=== PATIENT | male | born 1995 | race Hispanic/Latino ===

== ENCOUNTER 2018-08-10 14:51 | Emergency (ER) | payer MEDICAID, OTHER ==
[2018-08-10] MEDS ORDERED: KETOROLAC TROMETHAMINE 30MG/ML ONE (15:12)
== END 2018-08-10 15:44 | disposition home or self-care (01) ==
LOC: EDH 14:51
DX: K02.9 Dental caries, unspecified (principal); Z88.0 Allergy status to penicillin
CPT/HCPCS: 96372; 99283; J1885

== ENCOUNTER 2018-11-04 18:41 | Emergency (ER) | payer OTHER ==
[2018-11-04 19:28] LABS: RAPID GROUP A STREP NEGATIVE (NEGATIVE)
[2018-11-04] MEDS ORDERED: LIDOCAINE HCL-MPF 1% 2ML VIAL ONE (19:38)
[2018-11-04] MEDS ORDERED: CEFTRIAXONE SODIUM 1 GM ONE (19:38)
== END 2018-11-04 20:14 | disposition home or self-care (01) ==
LOC: EDH 18:41
DX: H65.193 Other acute nonsuppurative otitis media, bilateral (principal); R50.81 Fever presenting with conditions classified elsewhere; Z88.0 Allergy status to penicillin
CPT/HCPCS: 87804 ×2; 87880; 96372; 99284; J0696; J3490

== ENCOUNTER 2019-02-11 16:22 | Emergency (ER) | payer SELFPAY ==
[2019-02-11 17:13] LABS: APPEARANCE,URINE Clear (CLEAR); BILIRUBIN,URINE Negative (NEGATIVE); COLOR,URINE Yellow (YELLOW); GLUCOSE, URINE (UA) >=1000 mg/dL (NEGATIVE); KETONES,URINE Trace mg/dL (NEGATIVE); LEUKOCYTE ESTERASE ,URINE Negative (NEGATIVE); NITRATE,URINE Negative (NEGATIVE); OCCULT BLOOD,URINE Negative (NEGATIVE); PROTEIN,URINE Negative (NEGATIVE); UROBILINOGEN,URINE 0.2 mg/dL (0.2-1.0)
[2019-02-11] MEDS ORDERED: IBUPROFEN 800 MG TAB ONE (17:24)
[2019-02-11 17:54] LABS: BACTERIA,URINE None Seen /HPF (None Seen); RBC,URINE 0-1 /HPF (0-1); SQUAMOUS EPITHELIAL CELL,UR 0-2 /HPF (0-2); WBC,URINE 0-1 /HPF (0-1)
[2019-02-11 17:55] LABS: MUCUS,URINE Rare LPF (None Seen)
== END 2019-02-11 17:41 | disposition home or self-care (01) ==
LOC: EDH 16:22
DX: N47.6 Balanoposthitis (principal); K08.89 Other specified disorders of teeth and supporting structures; Z72.0 Tobacco use; Z88.0 Allergy status to penicillin
CPT/HCPCS: 81001

== ENCOUNTER 2024-05-05 20:04 | Emergency (ER) | payer SELFPAY ==
[~2024-05-05] VITALS: Ht 162.6 cm; Wt 145.1 kg
[2024-05-05 20:17] VITALS: BP 132/78; PULSE 88; RESP 20; TEMP 98.7; O2SAT 100
[2024-05-05] MEDS ORDERED: CIPOTIC OTIC (20:29)
--- NOTE | 2024-05-05 20:30 | ERN ---
General Chief Complaint: Earache Stated Complaint: C/O PAIN TO LEFT EAR X 5 DAYS Time Seen by MD: 20:07 Time Seen by Midlevel: 20:07 Source: patient History of Present Illness Initial Comments Patient is a 28-year-old male with no significant past medical history presenting to the emergency department with left ear pain that has been ongoing for the five days. Denies any other symptoms Allergies: Coded Allergies: Penicillins (Unverified Allergy, Unknown, 11/04/18) Home Meds Active Scripts Ciprofloxacin HCl/Hc (Cipro Hc Otic Susp) 0.2 %-1 % Otsus, 3 DROP OTIC BID for 7 Days, #10 ML 0 Refills Prov:CARROLL LAKHANI 05/05/24 Past Medical History Past Medical History: No Pertinent History Past Surgical History: None ROS Dictation CONSTITUTIONAL: Negative except for HPI HEAD/FACE: Negative except for HPI EENT: Negative except for HPI RESPIRATORY: Negative except for HPI GASTROINTESTINAL/ABDOMINAL: Negative except for HPI GENITOURINARY: Negative except for HPI MUSCULOSKELETAL: Negative except for HPI INTEGUMENTARY: Negative except for HPI NEUROLOGICAL/PSYCH: Negative except for HPI HEMATOLOGIC/LYMPHATIC: Negative except for HPI All Systems Negative, Except as noted above. 13 point review of systems assessed and all negative except for above. Physical Exam Physical Exam Dictation PHYSICAL EXAM: GENERAL: alert,, awake oriented x 3 HEENT: EOMI, Sclera non icteric, moist mucosa, left otitis externa NECK: Supple, no JVD, trachea midline LUNGS: Clear breath sounds bilaterally. No wheezes HEART: Regular rate and rhythm. Normal S1 and S2, without murmurs ABD: Abdomen soft, nontender. Bowel sounds present EXT: No clubbing or cyanosis, NEURO: Alert and oriented to person, follows commands MDM MDM: Differential diagnosis: Otitis media, otitis externa, mastoiditis There are no social concerns with this patient. Prescription drug management Prescriptions will include: Cipro HC otic Medical management and examination interpretation discussions were had by me with other qualified healthcare professionals as indicated for the patient's care. ED Course Orders Procedure Category Date Status Time Ciprofloxacin Hcl/Hc PHA 05/05/24 Complete (Cipro Hc Otic Susp 20:30 Current Medications Medications (Trade) Dose Ordered Sig/Tuan Route PRN Reason Start Time Stop Time Status Last Admin Dose Admin Ciprofloxacin/ Hydrocortisone (Cipro Hc Otic Susp) 1 DROP ONCE ONCE OTIC 05/05/24 20:30 05/05/24 20:31 DC 05/05/24 20:32 Vital Signs Date Time Temp Pulse Resp B/P (MAP) Pulse Ox O2 Delivery O2 Flow Rate FiO2 05/05/24 20:17 98.8 88 20 132/78 100 Room Air* 0 21 05/05/24 20:07 98.2 95 20 125/84 98 Room Air DX & DISP Disposition: Discharge Departure Impression: Primary Impression: Left otitis externa Condition: Stable Scripts Ciprofloxacin HCl/Hc (Cipro Hc Otic Susp) 0.2 %-1 % Otsus 3 DROP OTIC BID for 7 Days, #10 ML 0 Refills Prov: CARROLL LAKHANI 05/05/24 Additional Instructions: Your physical examination is consistent with an otitis externa. You were given Cipro floxacillin eardrops in the ER. I have also given you a prescription for outpatient management. Follow up with your primary care doctor in 2-3 days for repeat evaluation. Return to the ER for any new or worsening symptoms Referrals: SELF,REFERRAL (PCP) Time of Disposition: 20:27 I have reviewed the case, and I agree with, Diagnosis and Plan I performed the substantive portion of the visit. I have reviewed and personally made and approve the management plan that is documented in the note by myself or the SHANNAN. I acknowledge for responsibility for the patient's management plan. CARROLL LAKHANI May 05, 2024 20:30
[2024-05-05] MEDS: CIPROFLOXACIN HCL 0.2%/HYDROCORT 1% 10 ML OTIC SUSP OTIC ONE (20:32)
== END 2024-05-05 20:34 | disposition home or self-care (01) ==
LOC: EDH 20:04
DX: H60.92 Unspecified otitis externa, left ear (principal); Z88.0 Allergy status to penicillin
CPT/HCPCS: 99283

== ENCOUNTER 2024-05-11 11:37 | Emergency (ER) | payer SELFPAY ==
[~2024-05-11] VITALS: Ht 162.6 cm; Wt 74.8 kg
[~2024-05-11 11:37] MED LIST: CIPOTIC OTIC
[2024-05-11 11:38] VITALS: BP 127/75; PULSE 100; RESP 14; TEMP 97.5
[2024-05-11 12:13] LABS: COVID19 (SARS ANTIGEN RAPID) PRESUMPTIVE NEGATIVE (NEGATIVE); INFLUENZA TYPE A Negative For Type A (NEGATIVE); INFLUENZA TYPE B Negative For Type B (NEGATIVE)
[2024-05-11] MEDS: acetaMINOPHEN 500 MG TABLET PO STA (12:19)
[2024-05-11] MEDS: ketOROlac 15MG/ML VIAL (15MG/ML) IM STA (12:20)
[2024-05-11 12:45] LABS: RAPID GROUP A STREP positive (NEGATIVE)
[2024-05-11] MEDS ORDERED: AZIT500T4 PO (13:30)
--- NOTE | 2024-05-11 13:31 | ERN ---
ED Note History of Present Illness Stated Complaint: SORE THROAT COUGH Chief Complaint: Flu Symptoms Time Seen by MD: 11:38 Time Seen by Midlevel: 11:42 Dictation: 28-year-old male complaining of congestion, sore throat for the last three days. Denies any shortness of breath, cough nausea, vomiting or diarrhea. Denies any medical or surgical history. Patient has not taken any OTC medication. Allergies: Coded Allergies: Penicillins (Unverified Allergy, Unknown, 11/04/18) Home Meds Active Scripts Ciprofloxacin HCl/Hc (Cipro Hc Otic Susp) 0.2 %-1 % Otsus, 3 DROP OTIC BID for 7 Days, #10 ML 0 Refills Prov:CARROLL LAKHANI 05/05/24 Past Medical History Past Medical History: No Pertinent History Surgical History: None Review of System Dictation Constitutional: Negative for fever,chills, and weight loss Eyes: Negative for injury, pain,redness, and discharge ENT: Complaining of throat pain for three days Cardiovascular: Negative for chest pain, palpitations, and edema Respiratory: Negative for shortness of breath, cough, and wheezing, Abdomen/GI: Negative for abdominal pain, nausea, vomiting, diarrhea, and constipation Back: Negative for injury and pain : Negative for injury, bleeding and discharge MS/Extremity: Negative for injury and deformity Skin: Negative for rash, and discoloration Neuro: Negative for headache, weakness, numbness, tingling, and seizure Psych: Negative for suicide ideation, homicidal ideation, and hallucinations Review of Systems: was completed Initial Vital Sign VS Vital Signs Date Time Temp Pulse Resp B/P (MAP) Pulse Ox O2 Delivery O2 Flow Rate FiO2 05/11/24 11:38 97.5 100 14 127/75 100 Room Air 0 Physical Exam Dictation General: awake, alert, NAD Head/Face: Normocephalic, atraumatic Eyes: PERRL, EOMI, vision at baseline ENT: oral cavity clear, TMs clear, oropharynx mild erythema, no exudate Neck: Trachea midline, supple, no nuchal rigidity Cardiovascular: RRR, normal S1/S2, No MRGs, no JVD Respiratory: CTAB, no respiratory distress, No rales or wheezes Abdomen: Soft, non-tender, non-distended, normal bowel sounds, no guarding or rebound. Skin: Warm, dry, normal turgor, no rash MS/Extremity: Pulses equal, no cyanosis, neurovascular intact, FROM Neuro: COAx4, GCS 15, strength 5/5, CN 2-12 intact, normal cerebellar exam, normal gait, Psych: Normal behavior, mood, and affect normal Results (Laboratory/Radiology) Laboratory/Radiology Laboratory Tests Test 05/11/24 11:45 Influenza Type A Antigen Negative For Type A Influenza Type B Antigen Negative For Type B SARS-CoV-2 Antigen (Rapid) PRESUMPTIVE NEGATIVE Group A Streptococcus Rapid positive (NEGATIVE) *A Labs Reviewed?: Yes ED Course ED Course Orders Procedure Category Date Status Time Influenza Type A & B, LAB 05/11/24 Complete Rapid 11:48 Covid19 (Sars Antigen LAB 05/11/24 Complete Rapid) 11:48 Rapid (Group A Strep) LAB 05/11/24 Complete 11:48 Acetaminophen 500mg PHA 05/11/24 Complete Tab (Tylenol 500mg T 12:08 Ketorolac PHA 05/11/24 Complete Tromethamine 15mg/Ml 12:08 Current Medications Medications (Trade) Dose Ordered Sig/Tuan Route PRN Reason Start Time Stop Time Status Last Admin Dose Admin Acetaminophen (TYLenol 500MG TAB) 1,000 mg ONCE STAT PO 05/11/24 12:08 05/11/24 12:09 DC 05/11/24 12:19 Ketorolac Tromethamine (toRADol) 15 mg ONCE STAT IM 05/11/24 12:08 05/11/24 12:09 DC 05/11/24 12:20 Vital Signs Date Time Temp Pulse Resp B/P (MAP) Pulse Ox O2 Delivery O2 Flow Rate FiO2 05/11/24 11:38 97.5 100 14 127/75 100 Room Air 0 Medical Decision Making MDM MDM: 28-year-old male complaining of congestion, sore throat for the last three days. Denies any shortness of breath, cough nausea, vomiting or diarrhea. Denies any medical or surgical history. Patient has not taken any OTC medication. Patient's serology tested positive for strep. We will discharge patient with azithromycin since patient has not allergic to penicillins. Discussed findings with patient. Educated patient to follow up with PCP in 1-2 days and to control his temperature with Tylenol or Motrin [id number]. Patient verbalized understanding, answered all questions. Differential diagnosis: Viral syndrome, influenza, COVID, strep throat, Rationale: Tests considered and ordered secondary to shared decision making include: Previous outside records reviewed: Old ER visits. Risk of complication and/or morbidity or mortality of patient management: None Medications-Per medication reconciliation Need for hospitalization: Patient does not meet criteria for hospitalization. Need for emergency major/minor surgery: No There are no social concerns with this patient. Prescription drug management Prescriptions will include symptomatic care Patient's prior external medical records from other ER visits were reviewed by me as indicated. Prior testing and results from previous visits were reviewed. Prior tests were taken into account with medical decision making and resource utilization, independent historian/historians were used to obtain complete medical history. I independently interpreted the test that were performed, results were reviewed by me and considered findings on radiology if ordered. Medical management and examination interpretation discussions were had by me with other qualified healthcare professionals as indicated for the patient's care. DX & DISP Disposition: Discharge Departure Impression: Primary Impression: Strep throat Condition: Stable Scripts Azithromycin (Azithromycin) 500 Mg Tablet 1 TAB PO DAILY for 5 Days, #5 TAB 0 Refills Prov: THANIA LINDSAY NP 05/11/24 Referrals: SELF,REFERRAL (PCP) Time of Disposition: 13:30 I have reviewed the case, and I agree with, Diagnosis and Plan THANIA LINDSAY NP May 11, 2024 13:31
== END 2024-05-11 13:38 | disposition home or self-care (01) ==
LOC: EDH 11:37
DX: J02.0 Streptococcal pharyngitis (principal); Z20.822 Contact with and (suspected) exposure to COVID-19; Z88.0 Allergy status to penicillin; Z79.899 Other long term (current) drug therapy
CPT/HCPCS: 99283; 87426; 87880; 87804 ×2; 96372; J1885

== ENCOUNTER 2024-06-07 16:33 | Emergency (ER) | payer SELFPAY ==
[~2024-06-07] VITALS: Ht 162.6 cm; Wt 81.6 kg
[~2024-06-07 16:33] MED LIST changes: +AZIT500T4 PO
[2024-06-07 16:51] VITALS: BP 128/76; PULSE 111; RESP 18; TEMP 99.3; O2SAT 98
--- NOTE | 2024-06-07 17:32 | ERN ---
ED Note History of Present Illness Stated Complaint: SORE THROAT Chief Complaint: Sore Throat Time Seen by MD: 17:04 Time Seen by Midlevel: 17:04 Dictation: Patient is a 28-year-old male with no past medical history who presents to the emergency department with complaints of sore throat, clear productive cough, chills onset last night. Denies any nausea vomiting or diarrhea. No other complaints reported. Allergies: Coded Allergies: Penicillins (Unverified Allergy, Unknown, 11/04/18) Home Meds Active Scripts Azithromycin (Azithromycin) 500 Mg Tablet, 1 TAB PO DAILY for 5 Days, #5 TAB 0 Refills Prov:THANIA LINDSAY NP 05/11/24 Ciprofloxacin HCl/Hc (Cipro Hc Otic Susp) 0.2 %-1 % Otsus, 3 DROP OTIC BID for 7 Days, #10 ML 0 Refills Prov:CARROLL LAKHANI 05/05/24 Past Medical History Past Medical History: No Pertinent History Surgical History: None RN Note Reviewed/Agreed w/PFSH: Yes Review of System Dictation Constitutional: Negative for fever,and weight loss positive for chills Eyes: Negative for injury, pain,redness, and discharge ENT: Negative for injury,pain or swelling positive for sore throat Cardiovascular: Negative for chest pain, palpitations, and edema Respiratory: Negative for shortness of breath, and wheezing, positive for cough Abdomen/GI: Negative for abdominal pain, nausea, vomiting, diarrhea, and constipation Back: Negative for injury and pain : Negative for injury, bleeding and discharge MS/Extremity: Negative for injury and deformity Skin: Negative for rash, and discoloration Neuro: Negative for headache, weakness, numbness, tingling, and seizure Psych: Negative for suicide ideation, homicidal ideation, and hallucinations Initial Vital Sign VS Vital Signs Date Time Temp Pulse Resp B/P (MAP) Pulse Ox O2 Delivery O2 Flow Rate FiO2 06/07/24 16:48 99.3 103 18 128/76 98 Room Air 0 06/07/24 16:51 21 Physical Exam Dictation Vital Signs reviewed General Appearance: Alert, oriented x 3, no acute distress, well developed, nourished. Head and Face: non-traumatic. Eyes: PERRL, pink conjunctivas, eyelid no trauma, anterior chamber with arcus senilis. Ears: Pinnas intact and no signs of trauma or erythema ear canals clear and no discharge TM no erythema Nose: No discharge, no bleeding. Oropharynx: Mouth normal, tongue pink. pharynx clear,+ erythema, tonsils no exudates, no abscesses noted, mucous membrane moist Neck: Supple, non-tender, no thyromegaly, no masses, no JVD, no bruits Breast:Deferred Chest:No tenderness, no crepitus, no paradoxical movement, no retractions Lungs:Clear, well-ventilated, symmetric, no rales, no wheezing, no rhonchi, no stridor, good breath sounds bilaterally Heart: Regular rate, regular rhythm, no murmur, no gallops Vascular: no peripheral edema, Abdomen: Soft, positive bowel sounds, nondistended, no guarding, nontender, no rebound, no masses no hepatomegaly, no splenomegaly, no Causey's sign, no hernias. Rectal: Deferred Genital: Deferred Neurological: Normal speech, motor function intact, sensory function intact Musculoskeletal: Neck nontender, full range of motion, back nontender, full range of motion, Extremities: nontender, full range of motion Skin: Color pink, dry, no turgor, no rash, no lacerations, no abrasions, no contusions. Lymphatic: Deferred Results (Laboratory/Radiology) Laboratory/Radiology Laboratory Tests Test 06/07/24 18:03 Influenza Type A Antigen Negative For Type A Influenza Type B Antigen Negative For Type B SARS-CoV-2 Antigen (Rapid) PRESUMPTIVE NEGATIVE Group A Streptococcus Rapid positive (NEGATIVE) *A Labs Reviewed?: Yes ED Course ED Course Orders Procedure Category Date Status Time Influenza Type A & B, LAB 06/07/24 Complete Rapid 17:31 Covid19 (Sars Antigen LAB 06/07/24 Complete Rapid) 17:31 Acetaminophen 500mg PHA 06/07/24 Complete Tab (Tylenol 500mg T 18:00 Rapid (Group A Strep) LAB 06/07/24 Complete 17:31 Current Medications Medications (Trade) Dose Ordered Sig/Tuan Route PRN Reason Start Time Stop Time Status Last Admin Dose Admin Acetaminophen (TYLenol 500MG TAB) 1,000 mg ONCE ONCE PO 06/07/24 18:00 06/07/24 18:01 DC 06/07/24 18:43 Vital Signs Date Time Temp Pulse Resp B/P (MAP) Pulse Ox O2 Delivery O2 Flow Rate FiO2 06/07/24 18:43 99.9 06/07/24 16:51 99.3 111 18 128/76 98 Room Air* 0 21 06/07/24 16:48 99.3 103 18 128/76 98 Room Air 0 Medical Decision Making MDM Patient is a 28-year-old male with no past medical history who presents to the emergency department with complaints of sore throat, clear productive cough, chills onset last night. Denies any nausea vomiting or diarrhea. No other complaints reported. Patient tested positive for strep. Will be treated with the antibiotics. Patient no acute distress. Nontoxic appearing. Differential diagnosis: Strep, upper respiratory infection, COVID-19 infection Need for hospitalization: Patient does not meet criteria for hospitalization. There are no social concerns with this patient. DX & DISP Disposition: Discharge Departure Impression: Primary Impression: Strep throat Condition: Stable Scripts Azithromycin (Azithromycin) 500 Mg Tablet 1 TAB PO DAILY for 3 Days, #3 TAB 0 Refills Prov: CORI PAREKH 06/07/24 Additional Instructions: FOLLOW-UP WITH PRIMARY CARE PROVIDER IN 1 TO 2 DAYS. TAKE MEDICATIONS DIRECTED HERE IN THE EMERGENCY ROOM. OKAY TO CONTINUE HOME MEDICATIONS UNLESS OTHERWISE DISCUSSED DURING YOUR VISIT IN THE EMERGENCY ROOM TODAY. RETURN TO YOUR NEAREST EMERGENCY ROOM IF SYMPTOMS WORSEN OR IF THERE IS NO IMPROVEMENT. CALL 911 IF YOU NEED IMMEDIATE ASSISTANCE. TAKE TYLENOL OR MOTRIN [id number] NEEDED AND IF NO CONTRAINDICATIONS ARE PRESENT. INCREASE ORAL HYDRATION. A WOUND CULTURE OR URINE CULTURE WAS ORDERED HERE IN THE EMERGENCY ROOM DEPARTMENT PLEASE FOLLOW-UP WITH PRIMARY CARE PROVIDER AND ADVISE THEM TO GET REPEAT PORTS FROM OUR FACILITY. IF YOU HAD ANY CEDRIC WRAP/SPLINTS THAT WERE APPLIED HERE, PLEASE DO NOT REMOVE THEM UNTIL YOU SEE YOUR PRIMARY CARE OR SPECIALTY. Referrals: SELF,REFERRAL (PCP) Time of Disposition: 18:51 I have reviewed the case, and I agree with, Diagnosis and Plan CORI PAREKH Jun 07, 2024 17:32
[2024-06-07 18:36] LABS: RAPID GROUP A STREP positive (NEGATIVE)
[2024-06-07 18:42] LABS: COVID19 (SARS ANTIGEN RAPID) PRESUMPTIVE NEGATIVE (NEGATIVE)
[2024-06-07 18:43] VITALS: TEMP 99.8
[2024-06-07 18:43] LABS: INFLUENZA TYPE A Negative For Type A (NEGATIVE); INFLUENZA TYPE B Negative For Type B (NEGATIVE)
[2024-06-07] MEDS: acetaMINOPHEN 500 MG TABLET PO ONE (18:43)
[2024-06-07] MEDS ORDERED: AZIT500T4 PO (18:53)
== END 2024-06-07 18:55 | disposition home or self-care (01) ==
LOC: EDH 16:33
DX: J02.0 Streptococcal pharyngitis (principal); Z88.0 Allergy status to penicillin; Z20.822 Contact with and (suspected) exposure to COVID-19
CPT/HCPCS: 87426; 87804; 87880; 99283

== ENCOUNTER 2024-07-15 23:00 | Emergency (ER) | payer SELFPAY ==
[~2024-07-15] VITALS: Ht 162.6 cm; Wt 70.3 kg
--- NOTE | 2024-07-15 23:09 | NUR ---
SEPSIS ALERT CALLED OVERHEAD TO FT4. PT WITH TEMP OF 100.0, PULSE OF 132
--- NOTE | 2024-07-15 23:29 | EKG ---
[facility] Test Date: 2024-07-15 Test Time: 23:27:28 Pat Name: JAHAIRA CUBA Department: ED Room: Gender: [employer]: [facility] : 1995 Requested By: LESVIA BOCANEGRA Order Number: [id number] Reading MD: Miguel Friend Measurements Intervals [place] Rate: 114 P: 56 OR: 160 QRS: 62 QRSD: 63 T: 45 QT: 271 QTc: 373 Interpretive Statements Sinus tachycardia Left atrial enlargement No previous ECG available for comparison Electronically Signed On 07-18-2024 17:34:13 [employer] by Miguel Friend Please click the below link to view image of tracing.
[2024-07-15 23:43] LABS: RAPID GROUP A STREP negative (NEGATIVE)
[2024-07-15 23:45] LABS: BASOPHILS # (AUTO) 0.05 K/uL (0.00-0.20); BASOPHILS % (AUTO) 0.4 % (0.0-5.0); EOSINOPHILS # (AUTO) 0.04 K/uL (0.00-0.70); EOSINOPHILS % (AUTO) 0.3 % (0.0-8.0); HEMATOCRIT 46.3 % (42-54); IMMATURE GRANULOCYTE ABSOLUTE 0.04 K/uL (0-1); LYMPHOCYTES # (AUTO) 0.5 K/uL (1.0-4.8); LYMPHOCYTES % (AUTO) 4.3 % (21.0-51.0); MEAN CORPUSCULAR HEMOGLOBIN 28.2 pg (27.0-33.0); MEAN CORPUSCULAR HGB CONC 34.3 g/dL (32.0-36.0); MEAN CORPUSCULAR VOLUME 82.2 fL (79-99); MONOCYTES # (AUTO) 0.5 K/uL (0.1-1.0); MONOCYTES % (AUTO) 3.9 % (3.0-13.0); NEUTROPHILS # (AUTO) 10.9 K/uL (1.8-7.7); NEUTROPHILS % (AUTO) 90.8 % (40.0-77.0); PLATELET COUNT (AUTO) 291 K/uL (130-400); RED BLOOD CELL COUNT(AUTO) 5.63 MIL/uL (4.50-6.20); RED CELL DISTRIBUTION WIDTH 11.6 % (11.0-15.5)
[2024-07-15 23:52] LABS: INFLUENZA TYPE B Negative For Type B (NEGATIVE)
[2024-07-15 23:53] LABS: SARS-CoV-2, RNA, NAAT POSITIVE SARS CoV-2 (NEGATIVE)
[2024-07-15 23:55] LABS: INFLUENZA TYPE A Positive For Type A (NEGATIVE)
[2024-07-15 23:59] LABS: POTASSIUM 3.4 mmol/L (3.5-5.1)
--- NOTE | 2024-07-16 00:04 | ERN ---
ED Note History of Present Illness Stated Complaint: C/O COUGH,CHILLS, SORE THROAT, FEVER X 2 DAYS Chief Complaint: Cough Time Seen by MD: 23:08 Dictation: This is a 28-year-old male who presented to the emergency room with complaints of cough fever with chills and a sore throat going on for the past 2 days. He felt really sick with severe generalized body aches and fatigue and hence came to the ER for further evaluation At presentation his temperature was a 100 pulse 118 respirations 19 blood pressure 119/74 with a pulse oximetry of 97% on room air Allergies: Coded Allergies: Penicillins (Unverified Allergy, Unknown, 11/04/18) Home Meds Active Scripts Azithromycin (Azithromycin) 500 Mg Tablet, 1 TAB PO DAILY for 3 Days, #3 TAB 0 Refills Prov:CORI PAREKH [employer]BLE CEILING INSTALLER 06/07/24 Azithromycin (Azithromycin) 500 Mg Tablet, 1 TAB PO DAILY for 5 Days, #5 TAB 0 Refills Prov:THANIA LINDSAY PRODUCT SUPPORT REPRESENTATIVE 05/11/24 Ciprofloxacin HCl/Hc (Cipro Hc Otic Susp) 0.2 %-1 % Otsus, 3 DROP OTIC BID for 7 Days, #10 ML 0 Refills Prov:CARROLL LAKHANI PA 05/05/24 Past Medical History Past Medical History: No Pertinent History Surgical History: None Family History: Negative RN Note Reviewed/Agreed w/PFSH: Yes Review of System Dictation Constitutional: Positive for fever,chills, and denies weight loss Eyes: Negative for injury, pain,redness, and discharge ENT: Negative for injury,pain or swelling Cardiovascular: Negative for chest pain, palpitations, and edema Respiratory: Positive for shortness of breath, cough, and denies wheezing, Abdomen/GI: Negative for abdominal pain, nausea, vomiting, diarrhea, and constipation Back: Negative for injury and pain : Negative for injury, bleeding and discharge MS/Extremity: Negative for injury and deformity Skin: Negative for rash, and discoloration Neuro: Negative for headache, weakness, numbness, tingling, and seizure Psych: Negative for suicide ideation, homicidal ideation, and hallucinations Initial Vital Sign VS Vital Signs Date Time Temp Pulse Resp B/P (MAP) Pulse Ox O2 Delivery O2 Flow Rate FiO2 07/15/24 23:03 100.0 132 20 154/84 98 07/15/24 23:28 Room Air* 0 21 Physical Exam Dictation General: awake, alert, NAD Head/Face: Normocephalic, atraumatic Eyes: PERRL, EOMI, vision at baseline ENT: oral cavity clear, TMs clear, no signs of infection Neck: Trachea midline, supple, no nuchal rigidity Cardiovascular: RRR, normal S1/S2, No MRGs, no JVD Respiratory: CTAB, no respiratory distress, No rales or wheezes Abdomen: Soft, non-tender, non-distended, normal bowel sounds, no guarding or rebound. Skin: Warm, dry, normal turgor, no rash MS/Extremity: Pulses equal, no cyanosis, neurovascular intact, FROM Neuro: COAx4, GCS 15, strength 5/5, CN 2-12 intact, normal cerebellar exam, normal gait, Psych: Normal behavior, mood, and affect normal Extremities-trace edema without any palpable cords, Homans sign is negative Results (Laboratory/Radiology) Laboratory/Radiology Laboratory Tests Test 07/15/24 23:24 White Blood Count 12.0 K/uL (4.8-10.8) H Red Blood Count 5.63 MIL/uL (4.50-6.20) Hemoglobin 15.9 g/dL (14.0-18.0) Hematocrit 46.3 % (42-54) Mean Corpuscular Volume 82.2 fL (79-99) Mean Corpuscular Hemoglobin 28.2 pg (27.0-33.0) Mean Corpuscular Hemoglobin Concent 34.3 g/dL (32.0-36.0) Red Cell Distribution Width 11.6 % (11.0-15.5) Platelet Count 291 K/uL (130-400) Mean Platelet Volume 10.6 fL (7.5-10.5) H Immature Granulocyte % (Auto) 0.3 % (0-1) Neutrophils (%) (Auto) 90.8 % (40.0-77.0) H Lymphocytes (%) (Auto) 4.3 % (21.0-51.0) L Monocytes (%) (Auto) 3.9 % (3.0-13.0) Eosinophils (%) (Auto) 0.3 % (0.0-8.0) Basophils (%) (Auto) 0.4 % (0.0-5.0) Neutrophils # (Auto) 10.9 K/uL (1.8-7.7) H Lymphocytes # (Auto) 0.5 K/uL (1.0-4.8) L Monocytes # (Auto) 0.5 K/uL (0.1-1.0) Eosinophils # (Auto) 0.04 K/uL (0.00-0.70) Basophils # (Auto) 0.05 K/uL (0.00-0.20) Absolute Immature Granulocyte (auto 0.04 K/uL (0-1) Nucleated Red Blood Cells 0.0 % (0.0-0.19) Sodium Level 132 mmol/L (136-145) L Potassium Level 3.4 mmol/L (3.5-5.1) L Chloride Level 92 mmol/L (101-111) L Carbon Dioxide Level 24 mmol/L (21-32) Blood Urea Nitrogen 9 mg/dL (7-18) Creatinine 1.0 mg/dL (0.5-1.3) Glomerular Filtration Rate Calc 106 mL/min (>90) Random Glucose 374 mg/dL (70-105) H Lactic Acid Level 1.6 mmol/L (0.8-2.5) Total Calcium 9.3 mg/dL (8.5-10.1) Total Creatine Kinase 82 U/L (21-232) Troponin I High Sensitivity < 4 ng/L (4-75) L Influenza Type A Antigen Positive For Type A Influenza Type B Antigen Negative For Type B SARS-CoV-2, RNA, NAAT POSITIVE SARS CoV-2 Group A Streptococcus Rapid negative (NEGATIVE) Labs Reviewed?: Yes ED Course ED Course Orders Procedure Category Date Status Time Covid Rna Naat LAB 07/15/24 Complete 23:08 Influenza Type A & B, LAB 07/15/24 Complete Rapid 23:08 Rapid (Group A Strep) LAB 07/15/24 Complete 23:08 Iv Insertion CPOE 07/15/24 Transmitted 23:09 Pulse Ox(Continuous) RT 07/15/24 Transmitted 23:09 Vital Signs Per CPOE 07/15/24 Transmitted Routine 23:09 12 Lead Ekg Tracing- EKG 07/15/24 Complete Technical 23:09 Cbc With Differential LAB 07/15/24 In Process 23:09 Blood Cult ELIE 07/15/24 In Process 23:09 Urinalysis Profile LAB 07/15/24 In Process 23:09 Culture Urine ELIE 07/15/24 In Process 23:09 Creatine Kinase, Total LAB 07/15/24 Complete 23:09 Troponin I High LAB 07/15/24 Complete Sensitivity 23:09 Lactic Acid LAB 07/15/24 Complete 23:09 Basic Metabolic Panel LAB 07/15/24 Complete 23:09 Ketorolac PHA 07/16/24 Complete Tromethamine 15mg/Ml 00:00 0.9%Nacl 1000ml (Ns PHA 07/16/24 Complete 1000ml) 00:30 Oseltamivir Phosphate PHA 07/16/24 Complete (Tamiflu) 00:30 Current Medications Medications (Trade) Dose Ordered Sig/Tuan Route PRN Reason Start Time Stop Time Status Last Admin Dose Admin Ketorolac Tromethamine (toRADol) 15 mg ONCE ONCE IM 07/16/24 00:00 07/16/24 00:01 DC 07/16/24 00:17 Oseltamivir Phosphate (Tamiflu) 75 mg ONCE ONCE PO 07/16/24 00:30 07/16/24 00:31 DC 07/16/24 00:17 Sodium Chloride 1,000 ml @ 0 mls/hr ONCE ONCE IV 07/16/24 00:30 07/16/24 00:31 DC 07/16/24 00:17 Vital Signs Date Time Temp Pulse Resp B/P (MAP) Pulse Ox O2 Delivery O2 Flow Rate FiO2 07/15/24 23:28 100.0 118 19 119/74 97 Room Air* 0 21 07/15/24 23:03 100.0 132 20 154/84 98 We will perform diagnostic labs, and administer medications according to the patient's complaint. Once the results are available, will review and personally interpreted the labs to rule out any acute life-threatening emergency the trach require immediate intervention and treatment. I will then re-evaluate the patient after treatment and diagnostic exams have return to determine whether the patient requires any further testing, can safely be discharged home or need further admission to hospital for additional treatment and evaluation. [place] [address] BNP 7 is normal. Twelve lead EKG showed a normal sinus rhythm with sinus tachy. Viral serology was positive for influenza a and COVID test was also positive. I discussed with the patient available information and possibilities that perhaps what he is experiencing is more related to the influenza and he does not have any underlying pulmonary disease and his pulse oximetry is 97-98% and hence I recommended that the 1st step would be to treat his influenza a and if symptoms worsen, to consider symptomatic treatment for COVID. He verbalized full understanding and is agreeable. Medical Decision Making MDM MDM: Differential diagnosis: Viral syndrome, influenza, strep pharyngitis, URI Rationale: Tests considered and ordered secondary to shared decision making include: Previous outside records reviewed: Old ER visits. Risk of complication and/or morbidity or mortality of patient management: None Medications-Per medication reconciliation Need for hospitalization: Patient does not meet criteria for hospitalization. Need for emergency major/minor surgery: No There are no social concerns with this patient. Prescription drug management Prescriptions will include symptomatic care Patient's prior external medical records from other ER visits were reviewed by me as indicated. Prior testing and results from previous visits were reviewed. Prior tests were taken into account with medical decision making and resource utilization, independent historian/historians were used to obtain complete medical history. I independently interpreted the test that were performed, results were reviewed by me and considered findings on radiology if ordered. Medical management and examination interpretation discussions were had by me with other qualified healthcare professionals as indicated for the patient's care. Problem List Problem List: (1) Acute viral syndrome (2) Strep throat (3) Influenza A (4) SARS-CoV-2 positive DX & DISP Disposition: Discharge Departure Impression: Primary Impression: Acute viral syndrome Additional Impressions: Strep throat, Influenza A, SARS-CoV-2 positive Condition: Stable Scripts Oseltamivir Phosphate (Tamiflu) 75 Mg Cap 75 MG PO BID for 5 Days, #10 CAP 0 Refills Prov: LESVIA BOCANEGRA MD 07/16/24 Ketorolac Tromethamine (Toradol) 10 Mg Tab 10 MG PO QID for pain for 5 Days, #20 TAB 0 Refills Prov: LESVIA BOCANEGRA MD 07/16/24 Additional Instructions: Patient and the caregiver have been informed of all the diagnostic tests and the imaging conducted during the today's visit to the emergency room and has verbalized understanding of the results I have personally reviewed and interpreted all diagnostic exams performed here in the ER today as well as the vital signs documented by the nursing staff. The patient is now being discharged to home and should follow up with the primary care physician or the specialist as directed by the ER staff. Follow-up with primary care provider in 1 to 2 days. Take medications as directed here in the emergency room. Okay to continue home medications unless o therwise discussed during your visit in the emergency room today. Return to your nearest emergency room if symptoms worsen or if there is no improvement. Call 911 if you need immediate assistance. Take Tylenol or Motrin [id number] as needed and if no contraindications are present. Increase oral hydration. A wound culture or urine culture was ordered here in the emergency room department please follow-up with primary care provider and advise them to get repeat ports from our facility. If you had any John wrap/splints that were applied here, please do not remove them until you see your primary care or specialty. Referrals: SELF,REFERRAL (PCP) LESVIA BOCANEGRA MD Jul 16, 2024 00:04
[2024-07-16] MEDS: ketOROlac 15MG/ML VIAL (15MG/ML) IM ONE (00:17)
[2024-07-16] MEDS: OSELTAMIVIR PHOSPHATE 75 MG CAP PO ONE (00:17)
[2024-07-16] MEDS: 0.9%NACL 1000ML 1,000 ML IV ONE (00:17)
[2024-07-16] MEDS ORDERED: OSEL75 PO (00:59)
[2024-07-16] MEDS ORDERED: KETO10 PO (00:59)
[2024-07-16 01:00] LABS: APPEARANCE,URINE CLEAR (CLEAR); BILIRUBIN,URINE NEGATIVE (NEGATIVE); COLOR,URINE LIGHT-YELLOW (YELLOW); GLUCOSE, URINE (UA) >=1000 mg/dL (NEGATIVE); KETONES,URINE 150 mg/dL (NEGATIVE); LEUKOCYTE ESTERASE ,URINE NEGATIVE Leu/uL (NEGATIVE); NITRATE,URINE NEGATIVE (NEGATIVE); OCCULT BLOOD,URINE NEGATIVE (NEGATIVE); PH,URINE 5.5 (5.0-8.0); PROTEIN,URINE 20 mg/dL (NEGATIVE); UROBILINOGEN,URINE 0.2 mg/dL (0.2-1.0)
[2024-07-16 01:01] LABS: ADD UA MICROSCOPIC YES
[2024-07-16 01:02] LABS: RBC,URINE 0-1 /HPF (0-1); SQUAMOUS EPITHELIAL CELL,UR RARE /HPF (0-2)
[2024-07-16 01:47] VITALS: BP 125/74; PULSE 100; RESP 19; TEMP 99; O2SAT 97
[2024-07-16 01:59] LABS: WBC MORPHOLOGY CONSISTENT W/DIFF
== END 2024-07-16 01:50 | disposition home or self-care (01) ==
LOC: EDH 23:00
DX: U07.1 COVID-19 (principal); B34.9 Viral infection, unspecified; J02.0 Streptococcal pharyngitis; J10.1 Influenza due to other identified influenza virus with other respiratory manifestations; Z88.0 Allergy status to penicillin
CPT/HCPCS: 99284; 87635; 82550; 84484; 80048; 85025; 87040 ×2; 87086; 87880; 87804 ×2; 83605; 81001; 36415; 93005; 96360; 96372; J1885; J7030